=== PATIENT | female | born 1965 | race Asian ===

== ENCOUNTER 2020-09-17 14:10 | Emergency (ER) | payer OTHER ==
[~2020-09-17] VITALS: Ht 160 cm; Wt 68.2 kg
[~2020-09-17 14:10] MED LIST: NOCURR
[2020-09-17 14:47] VITALS: BP 147/74
[2020-09-17] MEDS ORDERED: IBUP200C5 PO (14:48)
[2020-09-17] MEDS ORDERED: HYDROCODONE/ACETAMINOPHEN 5-325 MG TABLET PO ONE (15:45)
== END 2020-09-17 16:29 | disposition home or self-care (01) ==
LOC: EMS 14:10
DX: M54.31 Sciatica, right side (principal); M54.32 Sciatica, left side
CPT/HCPCS: 99283